=== PATIENT | female | born 1950 | race Caucasian/White ===

== ENCOUNTER → 2020-08-15 | Outpatient (CLI) | payer BC ==
--- NOTE | 2020-08-15 16:51 | RAD ---
EXAM: Lumbar spine, 3 views. HISTORY: Pain. COMPARISON: None. FINDINGS: 3 views of the lumbar spine are obtained. There is lumbar levoscoliosis centered at L3. There is mild retrolisthesis of L1 on L2 and L2 on L3. There is multilevel endplate remodeling and facet arthropathy. No convincing acute fracture is seen. IMPRESSION: Multilevel degenerative change involving the lumbar spine, described above. No acute osseous finding. Electronically signed by: Yani Mcdaniel MD (08/15/2020 4:48 PM) [id number]
== END | disposition home or self-care (01) ==
LOC: DXRAD 12:03 → EDBD 12:03
PROVIDERS: ATTEND Specialist
DX: M47.816 Spondylosis without myelopathy or radiculopathy, lumbar region (principal); M43.16 Spondylolisthesis, lumbar region; M41.86 Other forms of scoliosis, lumbar region
CPT/HCPCS: 72100

== ENCOUNTER 2020-12-02 09:35 | Inpatient (IN) | payer MEDICARE, BC ==
[~2020-12-02] VITALS: Ht 160 cm; Wt 82.1 kg
[2020-12-02] VITALS (9 sets, daily range): BP systolic 110–126; BP diastolic 44–77
[2020-12-02] MEDS ORDERED: methylPREDNISolone SOD SUCC PF 125 MG/2 ML VIAL. IV ONE (09:45)
--- NOTE | 2020-12-02 09:45 | PHYS DOC ---
General Adult EDM: Chief Complaint: SHORTNESS OF BREATH HPI: HPI: 70-year-old female past medical history of hypertension, hyperlipidemia and former tobacco dependence, presents the ED with complaints of nonproductive cough for the past 2 weeks with worsening shortness of breath, now exertional shortness of breath for the past 5 to 6 days. No h/o cad, cardiac mumurs, dvt/pes. No recent surgeries or hospitalizations in the last 90 days. Has not been tested for Covid this year. Lives with family members-pt denies they have covid sxs. Review of Systems: Review of Systems: Constitutional: Denies fever or chills Eyes: Denies change in visual acuity HENT: Denies nasal congestion or sore throat Respiratory: Denies hemoptysis or increased wob Cardiovascular: Denies chest pain or edema GI: Denies abdominal pain, nausea, vomiting, bloody stools or diarrhea : Denies dysuria or hematuria Musculoskeletal: Denies back pain or joint pain Integument: Denies rash or crepitus Neurologic: Denies headache, focal weakness or sensory changes Endocrine: Denies polyuria or polydipsia Lymphatic: Denies swollen glands Psychiatric: Denies depression or anxiety Allergies: Allergies: Allergies Coded Allergies Type Severity Reaction Last Updated Verified No Known Drug Allergies 12/02/20 No Physical Exam: PE: CONSTITUTIONAL: Nontoxic, in no distress, alert and oriented, hemodynamically stable, HEAD: normocephalic, atraumatic, NECK: No midline tenderness, no nuchal rigidity or meningismus, no JVD or tracheal deviation EENT: External ocular movements intact, no trismus or drooling, no voice changes, moist mucous membranes, mild pharyngeal erythema CARD: Regular rate, S1, S2, no murmurs ABDOMEN: Soft, nontender, no distention, no rebound tenderness or guarding RESPIRATORY lungs clear to auscultation bilaterally, no wheezing, rales or crackles, no stridor or tripoding, 3L NC - 96% MUSCULOSKELETAL: Full range of motion's in all extremities, no deformities or tenderness to palpation, bl LE edema-equal calve sizes VASCULAR: pulses intact SKIN: Warm, no rash lesions or cyanosis NEURO: Sensory and motor intact, PSYCH: Appropriate mood and affect EKG: EKG: sinus rhythm at 86 bpm, no axis deviation, QTC 441, T wave inversion V2, no ST elevations or ST depressions Radiology/Procedures: Radiology/Procedures: IMAGING REPORT Signed PATIENT: PAULA MCCULLOUGH ACCOUNT: [id number] : 1950 LOCATION: ER AGE: 70 SEX: F EXAM STATUS: REG ER ORD. PHYSICIAN: BLESSING WORTHINGTON DO REASON: cough, soa PROCEDURE: PORTABLE CHEST 1V XR CHEST 1V INDICATION: cough, soa COMPARISON STUDY: None. FINDINGS: Lungs: Normal lung volume. No pulmonary mass or consolidation. The tracheobronchial tree and hilar structures are normal. Pleura: No pleural effusion or pneumothorax. Heart and Mediastinum: The cardiomediastinal silhouette is normal. Atherosclerosis of the thoracic aorta. IMPRESSION: 1. No consolidation. 2. Moderate-sized hiatal hernia. Electronically signed by: Pat Perales MD (12/02/2020 10:01 AM) [id number] DICTATED AND SIGNED BY: PAT PERALES MD DATE: 12/02/20 0959 CC: EDGAR MCCLURE MD; BLESSING WORTHINGTON DO ~MTH0 0 IMAGING REPORT Signed PATIENT: PAULA MCCULLOUGH ACCOUNT: [id number] : 1950 LOCATION: [address] [place] [address] AGE: 70 SEX: F EXAM STATUS: ADM IN ORD. PHYSICIAN: BLESSING WORTHINGTON DO REASON: dyspnea, r/o pe PROCEDURE: CT ANGIOGRAPHY CHEST CTA CHEST INDICATION: dyspnea, r/o pe Comparison: Chest radiograph 12/02/2020. TECHNIQUE: Following the uneventful administration of intravenous contrast, 91 cc Omnipaque 350, axial CT sections were obtained through the lungs and upper abdomen. Multiplanar reconstructions and MIP images were obtained. PQRS compliance statement: One or more of the following individualized dose reduction techniques were utilized for this examination: 1. Automated exposure control 2. Adjustment of the mA and/or kV according to patient size 3. Use of iterative reconstruction technique FINDINGS: Moderate burden bilateral pulmonary thromboembolic disease involving segmental and subsegmental branches of all 5 lobes. No right heart strain Lungs and Airways: Left upper lobe areas of bubbly lucencies with linear opacities and architectural distortion. Asymmetric right apical opacities. No abnormality of the central airways. Pleura: Small right pleural effusion. Heart and Mediastinum: The visualized thyroid is normal in size and attenuation. No axillary or supraclavicular lymphadenopathy. No mediastinal, hilar or retrocrural lymphadenopathy. Normal cardiac size. No pericardial effusion. Coronary artery atherosclerotic disease. Atherosclerosis of the thoracic aorta. Moderate-sized hiatal hernia. Abdomen: Limited images through the upper abdomen show no abnormality of the visualized organs. Bones and Soft Tissues: Age-indeterminate T12 compression deformity with 50 percent vertebral body height loss. Degenerative changes of the spine. IMPRESSION: 1. Moderate burden bilateral pulmonary thromboembolic disease. No right heart strain. 2. Age-indeterminate T12 compression deformity. Correlate for focal tenderness. 3. Asymmetric right apical opacities. Left upper lobe bubbly lucencies with architectural distortion. Findings could relate to an acute infectious/inflammatory process and/or sequela of remote infection. Recommend comparison with prior imaging, or three-month follow-up chest CT if no imaging available to ensure resolution and exclude underlying malignancy. 4. Small right pleural effusion. Heart Score: Risk Factors: Risk Factors: DM, Current or recent (<one month) smoker, HTN, HLP, family history of CAD, obesity. Risk Scores: Score 0 - 3: 2.5% MACE over next 6 weeks - Discharge Home Score 4 - 6: 20.3% MACE over next 6 weeks - Admit for Clinical Observation Score 7 - 10: 72.7% MACE over next 6 weeks - Early Invasive Strategies Course & Med Decision Making: Course & Med Decision Making Pertinent Labs and Imaging studies reviewed. (See chart for details) COVID-19 CRITERIA: The patient was evaluated during the global COVID-19 pandemic, and that diagnosis was suspected/considered upon their initial presentation. Their evaluation, treatment and testing was consistent with current guidelines for patients who present with complaints or symptoms that may be related to COVID-19. Concern for hypoxia requiring oxygen, in setting the of cough and sore throat, labs with nonspecific leukocytosis. Influenza and rapid strep negative. Covid test pending. Chest x-ray with no infiltrate, moderate-sized hiatal hernia. Patient also reports exertional dyspnea, likely due to symptomatic anemia. Repeat hemoglobin. 1U prbc ordered. No active bleeding (no VB, hematuria, melena/hematochezia, hemoptysis or hematemesis). Patient with history of iron deficiency anemia when younger but has never required any blood transfusions. Due to long wait time for D-dimer with lab, and normal renal function, I called hospitalist Dr. Lawson, who agreed with admission pending D-dimer and CTA of the chest if necessary. D-dimer was elevated. CTA of the chest resulted after patient was already admitted to the medical floor. Antibiotics ordered by myself with concern for pneumonia versus malignancy. I saw CT results and initially ordered heparin for non-massive pe. At Dr. Velásquez's request, he will determine AC. Pt stable at time of admission and agrees with this plan. I have spoken with the patient and/or caregivers. I have explained the patient's condition, diagnosis and treatment plan based on the information available to me at this time. I have answered the patient's and/or caregivers questions and answered any concerns. The patient and/or caregivers have as good an understanding of the patient's diagnosis, condition and treatment plan as can be expected at this point. The patient has been stabilized within the capabilit y of the emergency department. The patient will be transported for further care and management or will be moved to an observation or inpatient service. I have communicated with the staff or medical practitioner taking over this patient's care. Mitch Disclaimer: Mitch Disclaimer: This electronic medical record was generated, in whole or in part, using a voice recognition dictation system. Departure Departure: Impression: Primary Impression: Hypoxemia requiring supplemental oxygen Additional Impressions: Symptomatic anemia Bilateral pulmonary embolism CAP (community acquired pneumonia) Disposition: ADMITTED INPT THIS HOSP Condition: GUARDED Referrals: EDGAR MCCLURE MD (PCP) BLESSING WORTHINGTON DO Dec 02, 2020 09:45
--- NOTE | 2020-12-02 10:03 | RAD ---
XR CHEST 1V INDICATION: cough, soa COMPARISON STUDY: None. FINDINGS: Lungs: Normal lung volume. No pulmonary mass or consolidation. The tracheobronchial tree and hilar st ructures are normal. Pleura: No pleural effusion or pneumothorax. Heart and Mediastinum: The cardiomediastinal silhouette is normal. Atherosclerosis of the thoracic ao rta. IMPRESSION: 1. No consolidation. 2. Moderate-sized hiatal hernia. Electronically signed by: Jayden Perales MD (12/02/2020 10:01 AM) [id number]
[2020-12-02 10:15] LABS: BASO # 0.2 x10^3/uL (0.0-0.2); BASO % 1 % (0-3); EOS # 0.1 x10^3/uL (0.0-0.7); EOS % 1 % (0-3); HEMATOCRIT 22.4 % (36.0-47.0); LYMPH # 2.1 x10^3/uL (1.0-4.8); LYMPH % 15 % (24-48); MEAN CORPUSCULAR HEMOGLOBIN 25 pg (25-35); MEAN CORPUSCULAR HGB CONC 31 g/dL (31-37); MEAN CORPUSCULAR VOLUME 79 fL (79-100); MONO # 1.6 x10^3/uL (0.0-1.1); MONO % 11 % (0-9); NEUT # 10.7 x10^3uL (1.8-7.7); NEUT % 73 % (31-73); PLATELET COUNT 399 x10^3/uL (140-400); RED BLOOD COUNT 2.85 x10^6/uL (3.50-5.40); RED CELL DISTRIBUTION WIDTH 17.9 % (11.5-14.5); WHITE BLOOD COUNT 14.7 x10^3/uL (4.0-11.0)
[2020-12-02 10:19] LABS: CALCIUM 9.1 mg/dL (8.5-10.1); CREATININE 0.9 mg/dL (0.6-1.0); GFR 61.5; POTASSIUM 3.4 mmol/L (3.5-5.1)
[2020-12-02 10:31] LABS: ALBUMIN 3.3 g/dL (3.4-5.0); ALBUMIN/GLOBULIN RATIO 0.8 (1.0-1.7); TOTAL PROTEIN 7.6 g/dL (6.4-8.2)
[2020-12-02 10:39] LABS: % BANDS 1 % (0-9); % LYMPHS 15 % (24-48); % MONOS 4 % (0-10); % SEGS 80 % (35-66)
[2020-12-02 10:41] LABS: PLT ESTIMATE ADEQUATE (ADEQUATE)
[2020-12-02 10:43] LABS: INFLUENZA A PATIENT NEGATIVE (NEGATIVE); INFLUENZA B PATIENT NEGATIVE (NEGATIVE)
[2020-12-02] MEDS ORDERED: IOHEXOL 350 MG/ML 100 ML VIAL. IV ONE (13:15)
--- NOTE | 2020-12-02 13:56 | NUR ---
The patient, PAULA MCCULLOUGH, 70 y/o, F admitted by SUDHIR VALDES MD, was given written information regarding hospital policies, unit procedures and contact persons. Valuables were checked and VS taken, please see chart.
--- NOTE | 2020-12-02 14:03 | RAD ---
CTA CHEST INDICATION: dyspnea, r/o pe Comparison: Chest radiograph 12/02/2020. TECHNIQUE: Following the uneventful administration of intravenous contrast, 91 cc Omnipaque 350, axia l CT sections were obtained through the lungs and upper abdomen. Multiplanar reconstructions and MIP images were obtained. PQRS compliance statement: One or more of the following individualized dose reduction techniques were utilized for this examinat ion: 1. Automated exposure control 2. Adjustment of the mA and/or kV according to patient size 3. Use of iterative reconstruction technique FINDINGS: Moderate burden bilateral pulmonary thromboembolic disease involving segmental and subsegmental branc hes of all 5 lobes. No right heart strain Lungs and Airways: Left upper lobe areas of bubbly lucencies with linear opacities and architectural distortion. Asymmetric right apical opacities. No abnormality of the central airways. Pleura: Small right pleural effusion. Heart and Mediastinum: The visualized thyroid is normal in size and attenuation. No axillary or supra clavicular lymphadenopathy. No mediastinal, hilar or retrocrural lymphadenopathy. Normal cardiac size . No pericardial effusion. Coronary artery atherosclerotic disease. Atherosclerosis of the thoracic a jovanny. Moderate-sized hiatal hernia. Abdomen: Limited images through the upper abdomen show no abnormality of the visualized organs. Bones and Soft Tissues: Age-indeterminate T12 compression deformity with 50 percent vertebral body he ight loss. Degenerative changes of the spine. IMPRESSION: 1. Moderate burden bilateral pulmonary thromboembolic disease. No right heart strain. 2. Age-indeterminate T12 compression deformity. Correlate for focal tenderness. 3. Asymmetric right apical opacities. Left upper lobe bubbly lucencies with architectural distortion. Findings could relate to an acute infectious/inflammatory process and/or sequela of remote infection . Recommend comparison with prior imaging, or three-month follow-up chest CT if no imaging available to ensure resolution and exclude underlying malignancy. 4. Small right pleural effusion. FOR INTERNAL CODING PURPOSES Critical result: Findings discussed with the patient's nurse at 12/02/2020 1:59 PM. RESULT CODE: (C) Electronically signed by: Jayden Perales MD (12/02/2020 2:00 PM) [id number]
--- NOTE | 2020-12-02 14:10 | EKG ---
[facility] ED [facility] [address] [place] [id number] Test Date: 2020-12-02 Test Time: 09:43:37 Pat Name: PAULA MCCULLOUGH Department: Room: 124 A Gender: F Egg Caser: : 1950 Requested By: BLESSING WORTHINGTON Order Number: [id number] Reading MD: Ry Li Measurements Intervals [place] Rate: 86 P: 24 CT: 142 QRS: 20 QRSD: 96 T: 31 QT: 366 QTc: 441 Interpretive Statements SINUS RHYTHM T ABNORMALITY IN HIGH LATERAL LEADS Electronically Signed On 12-04-2020 13:41:12 [employer] by Ry Li
[2020-12-02] MEDS ORDERED: HEPARIN 25,000UTS/250ML PREMIX 250 ML IV PRN ×3 (14:45→18:00)
[2020-12-02] MEDS ORDERED: AZITHROMYCIN 500 MG in IV NORMAL SALINE 250ML 250 ML IV SCH (14:45)
[2020-12-02] MEDS ORDERED: HEPARIN for IV BOLUS 10,000 UNIT/10 ML VIAL. IV ONE ×2 (14:45→18:00)
[2020-12-02] MEDS ORDERED: HEPARIN for IV BOLUS 10,000 UNIT/10 ML VIAL. IV PRN ×5 (14:45→18:00)
--- NOTE | 2020-12-02 16:01 | HP ---
ADMIT DATE: 12/02/2020 HISTORY OF PRESENT ILLNESS: The patient is a 70-year-old female patient who came to the Emergency Room with a complaint of nonproductive cough for the last 2 weeks with worsening shortness of breath now, exertional shortness of breath for the past 5-6 years. No history of coronary artery disease, has never had history before of DVT or PE. No recent surgeries or hospitalization in the last 90 days. Has not been tested for COVID this year. Lives with family members. The patient denies that any of them has COVID. She was extensively investigated and has had an EKG, which showed that she was in sinus rhythm at 88 beats per minute with no axis deviation, corrected QT interval of 441 milliseconds. T-wave inversion in V2. No ST segment elevation or depression. Her chest x-ray showed normal lung volumes, no pulmonary mass or consolidation. The tracheobronchial tree and hilar structures are normal. No pleural effusion or pneumothorax. The cardiomediastinal silhouette is normal. She does have atherosclerosis of the thoracic aorta. She does have also moderate-sized hiatal hernia. Has had lab work done, which showed that the patient has microcytic hypochromic anemia. Her white cell count was 14,700, hemoglobin was 7, hematocrit 22, MCV 79 and platelet count of 399,000 with normal manual differential. Her prothrombin time, INR and aPTT were normal. D-dimer was high at 6.16. Her chemistry showed a serum sodium 137, potassium 3.4, chloride 101, bicarbonate 23, anion gap of 13, BUN 19, creatinine 0.9, estimated GFR of 61 mL per minute. Her influenza A and B were negative and group A streptococcus rapid test was negative. Given elevated D-dimer, she underwent CT angio of the chest. The patient was found moderate burden bilateral pulmonary thromboembolic disease involving segmental and subsegmental branches of all 5 lobes. No right heart strain. Lungs and airways, left upper lobe areas of bubbly lucencies with linear opacities and architectural distortion, asymmetric right apical opacities. No abnormality of the central airways. She has small right-sided pleural effusion. The visualized thyroid is normal in size and attenuation. No axillary or supraclavicular lymphadenopathy. No mediastinal or hilar or retrosternal lymphadenopathy. Normal cardiac size, no pericardial effusion. Coronary artery atherosclerotic disease. Limited images through the upper abdomen showed no abnormality of visualized organs. Bones and soft tissues, age indeterminate T12 compression fracture deformity with 50% vertebral body height loss, degenerative changes of the spine. The patient was admitted with microcytic hypochromic anemia. Her hemoglobin was only 6.8. The patient denied any hematemesis, melena, or hematochezia. Denied any hematuria, hemoptysis, or epistaxis. She is not on any blood thinners and denies any history of flying long distances or driving her car for long distances nonstop. She denied any hormone replacement therapy, recent surgery, or being bedridden, and therefore these are unprovoked pulmonary emboli. She does have history of malignant melanoma that was resected about in 2003 from her scalp area. However, the patient is known to have gastroesophageal reflux disease and hiatal hernia, but has never had endoscopy or colonoscopy. PAST MEDICAL HISTORY: Significant for hypertension, hyperlipidemia, gastroesophageal reflux disease, and hiatal hernia. PAST SURGICAL HISTORY: Significant for appendectomy in 1995. He has multiple myeloma surgery from her frontal scalp area in 2003. She has bilateral cataract extraction and arthroscopic left knee surgery in 2014. ALLERGIES: She has no known drug allergies. MEDICATIONS: The patient does not know her medication. We will call her [id number] to get the list of medication. FAMILY HISTORY: She has 2 brothers, both of them younger. The middle brother has oral cancer and her baby brother has non-Hodgkin lymphoma. Her mother at the age of 72 because of myocardial infarction. Father at age of 51 because of myocardial infarction. SOCIAL HISTORY: She is . She has a son and a daughter from previous marriage. She quit smoking about 3 years ago. She does not drink alcohol or use recreational drugs. 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 REVIEW OF SYSTEMS: The patient denied any blurring of vision, cataract, glaucoma, or macular degeneration. Denied any earache, tinnitus or sensorineural deafness. Denied any nosebleeds, stuffy nose, or postnasal drip. Denied any sore throat, sore tongue, toothache, hoarseness of voice, or difficulty swallowing. She denied any nausea, vomiting, diarrhea, or constipation. Denied any hematemesis, melena, or hematochezia. Denied any dysuria, frequency, or hematuria. Did complain of some chest discomfort and shortness of breath on exertion, cough, which is mostly dry. Denied any hemoptysis. PHYSICAL EXAMINATION: GENERAL: On arrival to the Emergency Room, the patient was tachypneic, but pale, not jaundiced, cyanosis, or thyromegaly. No jugular venous distention. No limb edema. VITAL SIGNS: Her heart rate was 89, blood pressure was 140/94, temperature was 98, respiratory rate was 28, and oxygen saturation was 98% on 3 liters of oxygen. HEAD, EYES, EARS, NOSE AND THROAT: Showed normocephalic, atraumatic. NECK: Supple. HEART: Normal first and second heart sounds. No gallop or murmur. CHEST: Clear to auscultation. No crepitation or rhonchi. ABDOMEN: Distended, soft, and nontender. No guarding or rigidity. No organomegaly. All hernial orifices intact. Bowel sounds normal. NEUROLOGIC: She was awake, alert, responding appropriately. All cranial nerves intact. EXTREMITIES: She moves extremities without difficulty. LABORATORY DATA: Her lab work on arrival showed a white cell count of 14,700, hemoglobin 7 that came down again to 6.8, hematocrit 22.4, MCV 79, and platelet count 399,000 with normal manual differential. Her prothrombin time is 10.4, INR 1, aPTT 26, and D-dimer was 6.16. Her chemistry showed a serum sodium 137, potassium 3.4, chloride 101, bicarbonate 23, anion gap of 13, BUN 19, creatinine 0.9, estimated GFR was 61 mL per minute. Her glucose 117, calcium was 9.1. Total bilirubin, AST, ALT, and alkaline phosphatase were normal. CK was 22. Troponin I was less than 0.017. Her beta natriuretic peptide was 183. Total protein was 7.6, albumin was 3.3. Her influenza A and B were negative. Group A streptococcus rapid testing was negative. Her chest x-ray was unremarkable and showed no consolidation, moderate-sized hiatal hernia. The CT angio of the chest showed the patient has moderate burden bilateral pulmonary thromboembolic disease, no right heart strain, age indeterminate T12 compression deformity, correlate for focal tenderness, asymmetric right apical opacities, left upper lobe bubbly lucencies with architectural distortion. Finding could relate to an acute infection, inflammatory process, and/or sequela of remote infection. Recommend comparison with prior images or 3-month followup chest CT. IMPRESSION: In summary, this is a 70-year-old female patient who came in with worsening shortness of breath over the last 2 weeks with exertional dyspnea, was found to be anemic and she has multiple bilateral pulmonary emboli that are unprovoked. She has a history of multiple melanoma resected in 2003. I am concerned that she might be bleeding given her iron deficiency anemia, whether she has a gastric ulcer, duodenal ulcer, or esophageal ulcer, or she might have even malignancy in her colon causing the clots in her lung. PLAN: My plan is to transfuse her 1 unit of blood. We will do a venous Doppler ultrasound and transfer her to a center where an inferior vena cava filter can be placed. Obviously, some patients with COVID-19 with come with pulmonary emboli also and she was swabbed for that. ADDENDUM The patient was admitted with 3 weeks history of shortness of breath. Her shortness of breath has worsened over the last 5-6 years. She has no history of coronary artery disease, has never had history of DVT or PE. No recent surgery or hospitalization in the last 90 days. She has not been tested for COVID this year and lives with her family members. The patient denies any of them has COVID. She was extensively investigated and had an EKG, which showed that she was in sinus rhythm. She was found to be anemic with hemoglobin 6.8. However, she has no history of hematemesis, melena, hematochezia, hematuria, hemoptysis, or epistaxis. She is not on any nonsteroidal anti-inflammatory medication; however, CT angio of the chest done because of high D-dimer showed that she has moderate burden bilateral pulmonary thromboembolic disease. I discussed the case with Dr. Tolbert and attempt to transfer her to [facility] as well as [facility] and none of them has empty beds available and as she is hemodynamically stable, she is not actively bleeding and in consultation with Dr. Tolbert, I did transfer her to the ICU and start her on heparin drip. I also ordered Doppler ultrasound of both lower extremities and obviously we will monitor her H and H and transfuse her as needed and once a bed available at [facility], we will transfer her there for placement of an IVC filter. SUDHIR VALDES MD DR: ISHAN/alex JOB#: [id number] / [id number]
[2020-12-02] MEDS ORDERED: ATOR40TA59 PO (16:44)
[2020-12-02] MEDS ORDERED: ATEN50TA PO (16:44)
[2020-12-02] MEDS ORDERED: LISI40TA PO (16:44)
[2020-12-02] MEDS ORDERED: TIOT18CA IH (16:44)
[2020-12-02] MEDS ORDERED: OMEP20CA16 PO (16:44)
[2020-12-03 02:10] VITALS: BP 113/59
[2020-12-03 05:50] VITALS: BP 113/54
--- NOTE | 2020-12-03 06:20 | NUR ---
Pt awake in bed at change of shift watching TV. Pt A&Ox4, very pleasant and cooperative with all assessments and care. VSS. Pt had finished up 1 unit of PRBCs a 182, no post transfusion reactions noted. Pt's HGB recheck post transfusion was up to 8.1. Pt up to BSC once this shift for voiding. Awaiting heme stool sample, pt aware and supplies in room. Pt denies bloody stool on last BM. Heparin gtt started per protocol. 0200 PTT check was >150, gtt held for 1 hour and dose decreased to 1000units/hr. Next PTT draw due at 0930, order placed. Pt stated this AM that she felt somewhat better and "was even able to lay the head of the bed down some when sleeping which I haven't been able to do." Possible transfer to [facility] for IVC filter placement.
[2020-12-03 06:31] LABS: HEMATOCRIT 24.1 % (36.0-47.0); HEMOGLOBIN 7.6 g/dL (12.0-15.5); RED BLOOD COUNT 3.04 x10^6/uL (3.50-5.40); RED CELL DISTRIBUTION WIDTH 18.1 % (11.5-14.5); WHITE BLOOD COUNT 15.4 x10^3/uL (4.0-11.0)
[2020-12-03 06:48] LABS: ALBUMIN 2.7 g/dL (3.4-5.0); ALBUMIN/GLOBULIN RATIO 0.7 (1.0-1.7); CALCIUM 8.8 mg/dL (8.5-10.1); CREATININE 0.8 mg/dL (0.6-1.0); GFR 70.5; POTASSIUM 4.1 mmol/L (3.5-5.1); TOTAL BILIRUBIN 0.4 mg/dL (0.2-1.0); TOTAL PROTEIN 6.7 g/dL (6.4-8.2)
--- NOTE | 2020-12-03 10:09 | NUR ---
APPT IS 66. NO RATE CHANGE ACCORDING TO PROTOCOL.
[2020-12-03 11:00] VITALS: BP 125/66
[2020-12-03] MEDS ORDERED: BENZOCAINE/MENTHOL LOZNGE 18'S BOX. PO PRN (11:30)
--- NOTE | 2020-12-03 12:02 | RAD ---
EXAM: Bilateral lower extremity venous Doppler sonogram. HISTORY: Pain and swelling. TECHNIQUE: [place]cala scale and color Doppler sonographic evaluation of the bilateral lower extremity veins with spectral waveform analysis was performed. FINDINGS: There is nonocclusive thrombus within the left popliteal and posterior tibial veins. There is normal color flow, normal compressibility and there are normal spectral waveforms in the remainder of the lower extremity veins. IMPRESSION: Nonocclusive deep venous thrombosis involving the left popliteal and posterior tibial vei ns. These findings are discussed with the nurse caring for the patient by the polyethylene combiner at the time of the exam Electronically signed by: Yani Mcdaniel MD (12/03/2020 12:00 PM) [id number]
[2020-12-03 13:37] LABS: HEMATOCRIT 24.8 % (36.0-47.0); HEMOGLOBIN 7.8 g/dL (12.0-15.5)
--- NOTE | 2020-12-03 13:41 | PN ---
DATE: 12/03/2020 SUBJECTIVE: The patient is resting, slightly propped up in bed, in no apparent distress. Denied any chest pain or shortness of breath. Continues to have cough, but mostly is dry. PHYSICAL EXAMINATION: GENERAL: When I examined her, she looked pale, not jaundiced, cyanosis, or thyromegaly. No jugular venous distension. No lower limb edema. VITAL SIGNS: Her heart rate was 80, blood pressure was 125/66, temperature was 99.2, respiratory rate 20, and oxygen saturation was 94% on 3 liters of oxygen. HEAD, EYES, EARS, NOSE AND THROAT: Showed normocephalic, atraumatic. NECK: Supple. HEART: Showed normal first and second heart sounds. No gallop, rub or murmur. CHEST: Clear to auscultation. No crepitation or rhonchi. ABDOMEN: Distended, soft, nontender. NEUROLOGIC: She was awake, alert, responding appropriately. All cranial nerves intact. She moves extremities without difficulty. She ambulates without assistance or assistive devices. Her intake and output are incompletely recorded. LABORATORY DATA: Her lab work this morning showed a white cell count 15,400, hemoglobin 7.6, hematocrit 24, MCV 80 and platelet count of 334,000. Her chemistry showed a serum sodium 138, potassium 4.1, chloride 104, bicarbonate 26, anion gap of 8, BUN 23, creatinine 0.8, estimated GFR was 70 mL per minute. Her glucose 145, calcium was 8.8. Total bilirubin, AST, ALT, alkaline phosphatase were normal. Total protein 6.7, albumin was 2.7. Her bilateral lower extremity venous Doppler ultrasound showed the patient has nonocclusive deep venous thrombus involving the left popliteal and posterior tibial veins. There is normal flow, normal compressibility and there are normal spectral waveforms in the remainder of the lower extremity veins. ASSESSMENT: 1. This is a 70-year-old female patient who was admitted through the Emergency Room with a complaint of nonproductive cough and shortness of breath that has been going on for the last 2 weeks and that has worsened over the last 5-6 days. She was extensively investigated in the Emergency Room and she was diagnosed with moderate burden bilateral pulmonary thromboembolic disease, no right heart strain. 2. Age indeterminate T12 compression deformity, correlate for focal tenderness. 3. She has left nonocclusive thrombus within the left popliteal and posterior tibial veins. However, the rest of the veins in both lower extremities are normal with no evidence of deep vein thrombosis. Other medical problems include: A. Hypertension. B. Hyperlipidemia. C. Gastroesophageal reflux disease. D. Hiatal hernia. My plan is to continue with heparin drip. We will continue to monitor her H and H. She clearly has indication for an IVC filter and we are waiting for her to be transferred to [facility] to consult the interventional radiologist for placement of an IVC filter. We tried to transfer her yesterday at multiple hospitals without success. SUDHIR VALDES MD DR: ISHAN/alex JOB#: [id number] / [id number]
[2020-12-03 16:04] VITALS: BP 120/50
--- NOTE | 2020-12-03 20:16 | NUR ---
2000 Called Report to [facility] Room 202 2009 Called EMS to request transport 2011 Called Farshad, pt's son, to advise of transport
[2020-12-03 20:28] LABS: HEMATOCRIT 24.5 % (36.0-47.0); HEMOGLOBIN 7.6 g/dL (12.0-15.5)
--- NOTE | 2020-12-03 20:33 | NUR ---
Discharge Note: Pt transported to [facility] Room 202 via EMS, pt on oxygen at 3 liters during transport, Heparin infusing at 10mls/hr during transport. VSS, no c/o pain or n/v at this time. Personal belongings sent with pt, chart copied and sent with pt.
--- NOTE | 2020-12-04 11:14 | NUR ---
IP: notified IP at [facility] of COVID result.
== END 2020-12-03 20:30 | disposition short-term general hospital (02) | DRG 175 ==
LOC: ER 09:35 → 1 SOUTH 11:30 → ICU 18:05
PROVIDERS: ADMIT Internal Medicine; ATTEND Internal Medicine
DX: I26.99 Other pulmonary embolism without acute cor pulmonale (principal); R65.11 Systemic inflammatory response syndrome (SIRS) of non-infectious origin with acute organ dysfunction; J96.01 Acute respiratory failure with hypoxia; I82.432 Acute embolism and thrombosis of left popliteal vein; I82.442 Acute embolism and thrombosis of left tibial vein; J90 Pleural effusion, not elsewhere classified; M48.54XA Collapsed vertebra, not elsewhere classified, thoracic region, initial encounter for fracture; D50.9 Iron deficiency anemia, unspecified; E11.9 Type 2 diabetes mellitus without complications; E78.5 Hyperlipidemia, unspecified; I10 Essential (primary) hypertension; I25.10 Atherosclerotic heart disease of native coronary artery without angina pectoris; I70.0 Atherosclerosis of aorta; K21.9 Gastro-esophageal reflux disease without esophagitis; K44.9 Diaphragmatic hernia without obstruction or gangrene; Z80.7 Family history of other malignant neoplasms of lymphoid, hematopoietic and related tissues; Z80.8 Family history of malignant neoplasm of other organs or systems; Z82.49 Family history of ischemic heart disease and other diseases of the circulatory system; Z85.820 Personal history of malignant melanoma of skin; Z87.891 Personal history of nicotine dependence; Z98.41 Cataract extraction status, right eye; Z98.42 Cataract extraction status, left eye
CPT/HCPCS: 36415; 71045; 71275; 80053; 82550; 83880; 84484; 85007; 85014; 85018; 85025; 85027; 85379; 85610; 85730; 86850; 86900; 86901; 86920; 87070; 87426; 87804; 87880; 93005; 93970; 96374; 99285; J1644; J2930; P9016; Q9967; U0003

== ENCOUNTER → 2021-10-02 | Outpatient (CLI) | payer MEDICARE, BC ==
[~2021-10-02] MED LIST: ATEN50TA PO; ATOR40TA59 PO; LISI40TA6 PO; OMEP20CA16 PO; TIOT18CA IH
--- NOTE | 2021-10-04 15:08 | RAD ---
INDICATION : Routine Screening. COMPARISON: October 01, 2020 TECHNIQUE: Standard mammogram screening views of the bilateral breasts were obtained with 3D tomosynt hesis. CAD was utilized. FINDINGS: The breasts are fatty density. No definite suspicious mass. IMPRESSION: BI-RADS Category 1: Negative. Recommend repeat screening exam in one year. The patient was placed into the recall system with a suggested recall date for follow up imaging. Mammography is the most sensitive method for finding small breast cancers, but it does not detect the m all and is not a substitute for careful clinical examination. A negative mammogram does not negate a clinically suspicious finding and should not result in delay in biopsying a clinically suspicious abnormality. Electronically signed by: Zion Chin MD (10/04/2021 3:05 PM) [id number]
== END ==
LOC: MAMMO 11:12
PROVIDERS: ATTEND Specialist
DX: Z12.31 Encounter for screening mammogram for malignant neoplasm of breast (principal)
CPT/HCPCS: 77063; 77067

== ENCOUNTER 2021-12-08 16:39 | Emergency (ER) | payer BC ==
[~2021-12-08] VITALS: Ht 160 cm; Wt 87.0 kg
[2021-12-08 18:07] VITALS: BP 116/90
--- NOTE | 2021-12-08 18:58 | PHYS DOC ---
Past History Past Medical History: Hypertension Additional Past Medical Histor: DVT, PE, LUNG AND SKIN CANCER Past Surgical History: Appendectomy Alcohol Use: None Adult General Chief Complaint Chief Complaint: BACK PAIN OR INJURY HPI HPI Patient is a 71-year-old female who presents with back pain, 5 out of 10, dull and achy in nature that happened while she was sitting down, turn to the side and felt a twinge. Denies any recent travels, traumas, illnesses, fevers, chest pain, shortness of breath, abdominal pain, nausea, vomiting. Denies any trouble sitting, standing or walking. Denies any numbness/tingling/weakness. Denies any trouble making urine or stool. Review of Systems Review of Systems Review of systems otherwise unremarkable except noted in HPI Allergies Allergies Allergies Coded Allergies Type Severity Reaction Last Updated Verified No Known Drug Allergies 12/02/20 No Physical Exam Physical Exam Constitutional: Well developed, well nourished, no acute distress, non-toxic appearance. [] HENT: Normocephalic, atraumatic, bilateral external ears normal, oropharynx moist, no oral exudates, nose normal. [] Eyes: conjunctiva normal, no discharge. [] Neck: Normal range of motion, no tenderness, supple, no stridor. [] Cardiovascular:Heart rate regular rhythm, no murmur [] Lungs & Thorax: Bilateral breath sounds clear to auscultation [] Abdomen: soft, no tenderness, no masses, no pulsatile masses. [] Skin: Warm, dry, no erythema, no rash. [] Back: Mild lumbar paraspinal muscle tenderness and spasm with no decrease in range of motion, neurovascular exam intact Extremities: No tenderness, no cyanosis, no clubbing, ROM intact, no edema. [] Neurologic: Alert and oriented X 3, normal motor function, normal sensory function, no focal deficits noted. [] Psychologic: Affect normal, judgement normal, mood normal. [] Current Patient Data Vital Signs Vital Signs Date Time Temp Pulse Resp B/P (MAP) Pulse Ox O2 Delivery O2 Flow Rate FiO2 12/08/21 18:07 98.6 68 18 116/90 (99) 99 Room Air EKG EKG [] Radiology/Procedures Radiology/Procedures [] Heart Score C/O Chest Pain: No Risk Factors: Risk Factors: DM, Current or recent (<one month) smoker, HTN, HLP, family history of CAD, obesity. Risk Scores: Risk Factors: DM, Current or recent (<one month) smoker, HTN, HLP, family history of CAD, obesity. Course & Med Decision Making Course & Med Decision Making Patient is a 71-year-old female who presents with low back pain Vital signs not concerning. Physical exam noted above. No focal neurologic deficits appreciated. Treated with pain medicine and muscle relaxers in ED. Discussed management at home and what to expect. Advised to follow-up first thing in the morning with primary care physician and set up an immediate follow-up to discuss ED visit and further need for evaluation treatment. Patient grateful, verbalized understanding and agreed with plan of discharge. Dragon Disclaimer Dragon Disclaimer This electronic medical record was generated, in whole or in part, using a voice recognition dictation system. Departure Departure: Impression: Primary Impression: Low back pain Disposition: HOME / SELF CARE / HOMELESS Condition: GOOD Referrals: EDGAR MCCLURE MD (PCP) Patient Instructions: Back Pain, Adult Additional Instructions: Thank you for coming into the emergency department tonight and allowing us to take care of you. Please read the attached information carefully to go over things we discussed. You can take 1000 mg of Tylenol every 8 hours, 600 mg of ibuprofen every 8 hours, and your muscle relaxer every 12 hours. Please also use ice packs. Please take your medicines as we discussed and as needed. It is very important you follow-up in the morning with your primary care physician to update on your ED visit and set up a follow-up with your primary care physician as soon as you can to discuss need for further evaluation, treatment and imaging. Please come back with new or concerning symptoms as we discussed. NOE VALENCIA MD Dec 08, 2021 18:58
[2021-12-08] MEDS ORDERED: oxyCODONE/APAP 5/325 1 TAB TABLET PO ONE (19:00)
[2021-12-08] MEDS ORDERED: CYCLOBENZAPRINE 10MG 4TABLET STARTPACK PO ONE (19:00)
[2021-12-08] MEDS ORDERED: CYCLOBENZAPRINE 10 MG TABLET. PO ONE (19:00)
[2021-12-08] MEDS ORDERED: IBUPROFEN 600 MG TABLET. PO ONE (19:00)
== END 2021-12-08 19:11 | disposition home or self-care (01) ==
LOC: ER 16:39
DX: M54.59 Other low back pain (principal); I10 Essential (primary) hypertension; Z86.718 Personal history of other venous thrombosis and embolism; Z90.89 Acquired absence of other organs
CPT/HCPCS: 99284

== ENCOUNTER 2022-02-25 15:16 | Emergency (ER) | payer BC ==
[~2022-02-25] VITALS: Ht 160 cm; Wt 88.1 kg
--- NOTE | 2022-02-25 15:44 | PHYS DOC ---
Past History Past Medical History: Hypertension Additional Past Medical Histor: DVT, PE, LUNG AND SKIN CANCER Past Surgical History: Appendectomy Alcohol Use: None General Adult EDM: Chief Complaint: SHORTNESS OF BREATH HPI: HPI: Patient is a 71-year-old female who presents to the emergency department for shortness of breath that started 3 days ago. Patient also reports feeling like a band is wrapped around her ribs. She reports a history of hypertension, GERD, DVT/PE. She also has a history of lung cancer. She reports that she received 5 radiation treatments and her last one was in September of last year. She reports that 3 weeks ago she was told she was in remission. Patient takes estrogen Spiriva inhalers as needed. Patient is on Eliquis for her DVT/PE history. She does not wear oxygen at home. Patient denies increased leg swelling, chest pain, fevers, nausea, vomiting, increased or worsening cough, night sweats. Review of Systems: Review of Systems: Constitutional: See HPI Respiratory: See HPI Cardiovascular: See HPI GI: See HPI Allergies: Allergies: Allergies Coded Allergies Type Severity Reaction Last Updated Verified No Known Drug Allergies 12/02/20 No Physical Exam: PE: Constitutional: Well developed, well nourished, no acute distress, non-toxic appearance. [] HENT: Normocephalic, atraumatic, bilateral external ears normal, oropharynx moist, no oral exudates, nose normal. [] Eyes: PERRL, EOMI, conjunctiva normal, no discharge. [] Neck: Normal range of motion, no stridor Cardiovascular:Heart rate regular rhythm, no murmur [] Lungs & Thorax: Bilateral breath sounds clear to auscultation [] Abdomen: Bowel sounds normal, soft, no tenderness, no masses, no pulsatile masses. [] Skin: Warm, dry, no erythema, no rash. [] Back: No tenderness, no CVA tenderness. [] Extremities: No tenderness, no cyanosis, no clubbing, ROM intact, trace edema to bilateral lower extremities which patient reports is her baseline Neurologic: Alert and oriented X 3, normal motor function, normal sensory function, no focal deficits noted. [] Psychologic: Affect normal, judgement normal, mood normal. [] Current Patient Data: Labs: Laboratory Tests Test 02/25/22 15:50 White Blood Count 10.0 x10^3/uL Red Blood Count 3.33 x10^6/uL Hemoglobin 9.7 g/dL Hematocrit 30.2 % Mean Corpuscular Volume 91 fL Mean Corpuscular Hemoglobin 29 pg Mean Corpuscular Hemoglobin Concent 32 g/dL Red Cell Distribution Width 14.1 % Platelet Count 370 x10^3/uL Neutrophils (%) (Auto) 74 % Lymphocytes (%) (Auto) 15 % Monocytes (%) (Auto) 9 % Eosinophils (%) (Auto) 1 % Basophils (%) (Auto) 1 % Neutrophils # (Auto) 7.4 x10^3uL Lymphocytes # (Auto) 1.5 x10^3/uL Monocytes # (Auto) 0.9 x10^3/uL Eosinophils # (Auto) 0.1 x10^3/uL Basophils # (Auto) 0.1 x10^3/uL Sodium Level 137 mmol/L Potassium Level 4.3 mmol/L Chloride Level 104 mmol/L Carbon Dioxide Level 24 mmol/L Anion Gap 9 Blood Urea Nitrogen 12 mg/dL Creatinine 0.7 mg/dL Estimated GFR (Cockcroft-Gault) 82.0 BUN/Creatinine Ratio 17 Glucose Level 111 mg/dL Calcium Level 9.3 mg/dL Total Bilirubin 0.4 mg/dL Aspartate Amino Transf (AST/SGOT) 16 U/L Alanine Aminotransferase (ALT/SGPT) 14 U/L Alkaline Phosphatase 103 U/L Troponin I High Sensitivity 7 ng/L Total Protein 7.4 g/dL Albumin 3.6 g/dL Albumin/Globulin Ratio 0.9 Current Medications Medications (Trade) Dose Ordered Sig/Alexia Route PRN Reason Start Time Stop Time Status Last Admin Dose Admin Methylprednisolone Sodium Succinate (SOLU-Medrol 125MG VIAL) 125 mg 1X ONCE IV 02/25/22 15:45 02/25/22 15:48 DC 02/25/22 15:45 Iohexol (Omnipaque 300 Mg/ml) 75 ml 1X ONCE IV 02/25/22 15:45 02/25/22 15:48 DC 02/25/22 16:54 Info (Do NOT chart on this entry -- for MONITORING) 1 each PRN DAILY PRN MC SEE COMMENTS 02/25/22 16:00 02/27/22 15:59 Vital Signs: Vital Signs Date Time Temp Pulse Resp B/P (MAP) Pulse Ox O2 Delivery O2 Flow Rate FiO2 02/25/22 15:19 98.2 76 16 144/52 (82) 98 Room Air EKG: EKG: EKG performed by ER staff at 1536 are sinus rhythm with a rate of 60, QTc 445, no STEMI read by Dr. Head at 1540 [] Radiology/Procedures: Radiology/Procedures: []PROCEDURE: CT ANGIOGRAPHY CHEST Examination: CT chest with IV contrast HISTORY: History of shortness of breath, pulmonary embolism COMPARISON: 12/02/2020 TECHNIQUE: Axial CT angiographic images of chest were performed with IV contrast. Coronal and sagittal 3-D reformats are performed Exposure: One or more of the following individualized dose reduction techniques were utilized for this examination: 1. Automated exposure control 2. Adjustment of the mA and/or kV according to patient size 3. Use of iterative reconstruction technique FINDINGS: The central airways are patent. Heart size grossly appears unremarkable Moderate aortic atherosclerosis There is no evidence of filling defect identified in the main pulmonary arterial trunk and right and left main pulmonary arteries and the visualized lobar branches likely pulmonary arteries. The evaluation of the distal branches of the pulmonary arteries is limited. Left upper lobe lucencies with linear airspace opacity and architectural distortion identified with interval increase in diffuse airspace opacity in the left upper lobe of the lung likely atelectasis or infiltrates. Neoplasm is not excluded. Linear atelectasis or infiltrate right apical lung, unchanged Large hiatal hernia. The liver, spleen, adrenals grossly appears unremarkable Moderate compression changes of T10 vertebral body new since prior exam. Moderate compression change of T12 vertebral bodies unchanged. IMPRESSION: 1. No evidence of central pulmonary embolism. The evaluation of the distal branches of the pulmonary arteries is limited. 2. Left upper lobe lucencies with linear airspace opacity and architectural distortion identified with interval increase in airspace opacity in the left upper lobe of the lung likely atelectasis or infiltrates. Neoplasm is not excluded. 3. Large hiatal hernia. 4. Moderate compression changes of T10 vertebral body new since prior exam. Electronically signed by: Hector Zaragoza MD (02/25/2022 5:12 PM) [id number] DICTATED AND SIGNED BY: HECTOR ZARAGOZA MD DATE: 02/25/22 1706 CC: REECE MULLINS APRN; EDGAR MCCLURE MD ~ Heart Score: C/O Chest Pain: No Risk Factors: Risk Factors: DM, Current or recent (<one month) smoker, HTN, HLP, family history of CAD, obesity. Risk Scores: Score 0 - 3: 2.5% MACE over next 6 weeks - Discharge Home Score 4 - 6: 20.3% MACE over next 6 weeks - Admit for Clinical Observation Score 7 - 10: 72.7% MACE over next 6 weeks - Early Invasive Strategies Course & Med Decision Making: Course & Med Decision Making Pertinent Labs and Imaging studies reviewed. (See chart for details) [] Patient presents to the emergency department for shortness of breath over the last 3 days. Patient's room air oxygen saturation is 99% however, she is tachypneic with a respiratory rate of 28. Patient has a history of lung cancer and is in remission. She also has a history of DVT and PE on Eliquis. Work-up in the ER consisted of blood work including troponin, EKG and CT angio chest to rule out pulmonary embolism. Following treatment in the emergency department, patient's breathing has improved and she reports improvement in her shortness of breath. Patient's vital signs are stable, she is not hypoxic or tachypneic. Lab work was unremarkable. Patient's hemoglobin was 9.7 which has improved from previous lab findings. Patient has a negative troponin. Chest CT shows left upper lobe opacity which is possibly infiltrate read by the radiologist. Curb 65 is 1. Patient will be treated with combination therapy for pneumonia. Patient will be discharged home with an albuterol inhaler also. I discussed with patient all findings and diagnostic testing as well as the need to follow-up with PCP for further evaluation and treatment or return to the ER if any new or worsening symptoms. Strict return precautions were also discussed at length. Patient voiced understanding and agreement with the plan. Patient is hemodynamically stable at the time of disposition. Dragon Disclaimer: Dragon Disclaimer: This electronic medical record was generated, in whole or in part, using a voice recognition dictation system. Departure Departure: Impression: Primary Impression: Pneumonia Qualified Codes: J18.9 - Pneumonia, unspecified organism Disposition: HOME / SELF CARE / HOMELESS Condition: GOOD Referrals: EDGAR MCCLURE MD (PCP) Patient Instructions: Pneumonia, Adult Additional Instructions: You were seen in the emergency department today for shortness of breath. You are noted to have a pneumonia which will be treated with an antibiotic. Please start and finish the antibiotic completely. Increase your fluids and rest. Continue taking your inhalers that are previously prescribed. You are being discharged home with albuterol inhaler please use this as needed. Follow-up with your primary care provider tomorrow regarding your ER visit. As we discussed, you should contact your fuller brush worker to follow-up regarding your new diagnosis of pneumonia. I would advise you to purchase a pulse oximeter from the pharmacy monitor your oxygen saturations at home. You should return to the emergency department if your oxygen saturation drops below 90%. Return to the emergency department if you develop increased shortness of breath, high fevers refractory to treatment, intractable nausea or vomiting, chest pain, weakness, confusion or any new or worsening concerns. Scripts Albuterol Sulfate (PROAIR HFA INHALER) 8.5 Gm Hfa.aer.ad 2 PUFF IH PRN Q4-6HRS PRN for wheezing for 21 Days, #1 INHALER 0 Refills as needed for wheezing Prov: REECE MULLINS APRN 02/25/22 Azithromycin (AZITHROMYCIN TABLET) 250 Mg Tablet 1 PKG PO UD for pneumonia for 5 Days, #5 TAB 0 Refills 1 for days 2-5 Prov: REECE MULLINS APRN 02/25/22 Cefdinir (CEFDINIR) 300 Mg Capsule 1 CAP PO BID for pneumonia for 7 Days, #14 CAP 0 Refills Prov: REECE MULLINS APRN 02/25/22 REECE MULLINS APRN Feb 25, 2022 15:43
[2022-02-25] MEDS ORDERED: methylPREDNISolone SOD SUCC PF 125 MG/2 ML VIAL. IV ONE (15:45)
[2022-02-25] MEDS ORDERED: IOHEXOL 300 MG/ML 75 ML VIAL. IV ONE (15:45)
[2022-02-25] MEDS ORDERED: CONTRAST GIVEN. MC PRN (16:00)
[2022-02-25 16:14] LABS: BASO # 0.1 x10^3/uL (0.0-0.2); BASO % 1 % (0-3); EOS # 0.1 x10^3/uL (0.0-0.7); EOS % 1 % (0-3); HEMATOCRIT 30.2 % (36.0-47.0); HEMOGLOBIN 9.7 g/dL (12.0-15.5); LYMPH # 1.5 x10^3/uL (1.0-4.8); LYMPH % 15 % (24-48); MEAN CORPUSCULAR HEMOGLOBIN 29 pg (25-35); MEAN CORPUSCULAR HGB CONC 32 g/dL (31-37); MEAN CORPUSCULAR VOLUME 91 fL (79-100); MONO # 0.9 x10^3/uL (0.0-1.1); MONO % 9 % (0-9); NEUT # 7.4 x10^3uL (1.8-7.7); NEUT % 74 % (31-73); PLATELET COUNT 370 x10^3/uL (140-400); RED BLOOD COUNT 3.33 x10^6/uL (3.50-5.40); RED CELL DISTRIBUTION WIDTH 14.1 % (11.5-14.5)
[2022-02-25 16:41] LABS: CALCIUM 9.3 mg/dL (8.5-10.1); CREATININE 0.7 mg/dL (0.6-1.0); POTASSIUM 4.3 mmol/L (3.5-5.1)
[2022-02-25 16:46] LABS: ALBUMIN 3.6 g/dL (3.4-5.0); ALBUMIN/GLOBULIN RATIO 0.9 (1.0-1.7); TOTAL BILIRUBIN 0.4 mg/dL (0.2-1.0); TOTAL PROTEIN 7.4 g/dL (6.4-8.2)
--- NOTE | 2022-02-25 17:15 | RAD ---
Examination: CT chest with IV contrast HISTORY: History of shortness of breath, pulmonary embolism COMPARISON: 12/02/2020 TECHNIQUE: Axial CT angiographic images of chest were performed with IV contrast. Coronal and sagitta l 3-D reformats are performed Exposure: One or more of the following individualized dose reduction techniques were utilized for thi s examination: 1. Automated exposure control 2. Adjustment of the mA and/or kV according to patient size 3. Use of iterative reconstruction technique FINDINGS: The central airways are patent. Heart size grossly appears unremarkable Moderate aortic atherosclerosis There is no evidence of filling defect identified in the main pulmonary arterial trunk and right and left main pulmonary arteries and the visualized lobar branches likely pulmonary arteries. The evaluation of the distal branches of the pulmonary arteries is limited. Left upper lobe lucencies with linear airspace opacity and architectural distortion identified with interval increase in diffu se airspace opacity in the left upper lobe of the lung likely atelectasis or infiltrates. Neoplasm is not excluded. Linear atelectasis or infiltrate right apical lung, unchanged Large hiatal hernia. The liver, spleen, adrenals grossly appears unremarkable Moderate compression changes of T10 vertebral body new since prior exam. Moderate compression change of T12 vertebral bodies unchanged. IMPRESSION: 1. No evidence of central pulmonary embolism. The evaluation of the distal branches of the pulmonary arteries is limited. 2. Left upper lobe lucencies with linear airspace opacity and architectural distortion identified wi th interval increase in airspace opacity in the left upper lobe of the lung likely atelectasis or inf iltrates. Neoplasm is not excluded. 3. Large hiatal hernia. 4. Moderate compression changes of T10 vertebral body new since prior exam. Electronically signed by: Hector Zaragoza MD (02/25/2022 5:12 PM) [id number]
[2022-02-25] MEDS ORDERED: CEFD300C PO (17:58)
[2022-02-25] MEDS ORDERED: ALBU2.5V8 IH (17:58)
[2022-02-25] MEDS ORDERED: AZIT250T6 PO (17:58)
[2022-02-25] MEDS ORDERED: CEFDINIR 300 MG CAPSULE PO SCH (18:00)
[2022-02-25] MEDS ORDERED: AZITHROMYCIN 250 MG TABLET. PO ONE (18:00)
[2022-02-25 18:38] VITALS: BP 132/76
--- NOTE | 2022-02-25 20:19 | EKG ---
[address] [address] Test Date: 2022-02-25 Test Time: 15:36:52 Pat Name: PAULA MCCULLOUGH Department: Room: Gender: F Cardiopulmonary Physical Therapist: : [id number] Requested By: REECE MULLINS Order Number: [id number] Reading MD: Ry Li Measurements Intervals [place] Rate: 68 P: 11 TX: 162 QRS: 6 QRSD: 86 T: 24 QT: 414 QTc: 445 Interpretive Statements SINUS RHYTHM NORMAL ECG t Electronically Signed On 03-01-2022 21:42:48 CDT by Ry Li
== END 2022-02-25 18:43 | disposition home or self-care (01) ==
LOC: ER 15:16
DX: J18.9 Pneumonia, unspecified organism (principal); I10 Essential (primary) hypertension; K21.9 Gastro-esophageal reflux disease without esophagitis; Z86.718 Personal history of other venous thrombosis and embolism; Z85.118 Personal history of other malignant neoplasm of bronchus and lung
CPT/HCPCS: 36415; 71275; 80053; 84484; 85025; 93005; 96374; 99285; J2930; Q9967